=== PATIENT | male | born 1945 | race Caucasian/White ===

== ENCOUNTER 2016-12-08 08:06 | Outpatient (CLI) | payer MEDICARE ==
[~2016-12-08] VITALS: Ht 172.7 cm; Wt 95.3 kg
[~2016-12-08 08:06] MED LIST: ASPI1TAB PO; FISH1000 PO; GLUC1CAP10 PO; LISI10TA4 PO; MULT1TAB10 PO; VITA500T PO
[2016-12-08] MEDS ORDERED: NS 1,000 ML IV SCH (09:00)
[2016-12-08] MEDS ORDERED: LIDOCAINE 2% INJ 100 MG/5 ML SDV (FOR ANES.) As Ordered ONE (09:27)
[2016-12-08] MEDS ORDERED: PROPOFOL 200 MG/20 ML VIAL As Ordered ONE (09:27)
--- NOTE | 2016-12-08 09:36 | ROOR ---
Patient Name: Garth Flanagan Procedure Date: 12/08/2016 9:19 AM Date of : 1945 Age: 71 Room: [facility] Gender: Male Note Status: Finalized Procedure: Colonoscopy Indications: Screening in patient at increased risk: Colorectal cancer in father before age 60 Providers: Rodri DOLAN MD Referring MD: KAMILA AREVALO MD Requesting Provider: Medicines: Monitored Anesthesia Care Complications: No immediate complications. Procedure: Pre-Anesthesia Assessment: - The heart rate, respiratory rate, oxygen saturations, blood pressure, adequacy of pulmonary ventilation, and response to care were monitored throughout the procedure. The Colonoscope was introduced through the anus and advanced to the cecum, identified by appendiceal orifice and ileocecal valve. The colonoscopy was performed without difficulty. The patient tolerated the procedure well. The quality of the bowel preparation was good. Findings: The perianal and digital rectal examinations were normal. Internal hemorrhoids were found during retroflexion. The hemorrhoids were moderate. The entire examined colon appeared normal on direct and retroflexion views. Impression: - Internal hemorrhoids. - The entire colon is normal on direct and retroflexion views. - No specimens collected. Recommendation: - Repeat colonoscopy in 5 years for screening purposes. Rodri Dolan MD Rodri DOLAN MD 12/08/2016 9:36:19 AM This report has been signed electronically. Number of Addenda: 0 Note Initiated On: 12/08/2016 9:19 AM Estimated Blood Loss: Estimated blood loss: none.
[2016-12-08 09:50] VITALS: BP 109/67
== END 2016-12-08 10:13 | disposition home or self-care (01) ==
LOC: M OPP 08:06
PROVIDERS: ATTEND Internal Medicine Gastroenterology
DX: Z12.11 Encounter for screening for malignant neoplasm of colon (principal); Z80.0 Family history of malignant neoplasm of digestive organs; R19.4 Change in bowel habit; K64.8 Other hemorrhoids; I10 Essential (primary) hypertension; R01.1 Cardiac murmur, unspecified; M19.90 Unspecified osteoarthritis, unspecified site; R06.83 Snoring; Z88.0 Allergy status to penicillin; Z79.82 Long term (current) use of aspirin; Z79.899 Other long term (current) drug therapy; Z80.42 Family history of malignant neoplasm of prostate

== ENCOUNTER 2020-05-07 18:48 | Emergency (ER) | payer MEDICARE ==
[~2020-05-07] VITALS: Ht 172.7 cm; Wt 97.9 kg
[~2020-05-07 18:48] MED LIST changes: -ASPI1TAB PO; +ASPI81TA26 PO; +LISI10TA22 PO; -LISI10TA4 PO; +VITA-243 PO; -VITA500T PO
[2020-05-07] MEDS ORDERED: OMEP-218 PO (19:06)
[2020-05-07] MEDS ORDERED: vitamin d PO (19:06)
--- NOTE | 2020-05-07 20:18 | REPVR ---
PROCEDURE INFORMATION: Exam: US Duplex Right Upper Extremity Veins, Limited Exam date and time: 05/07/2020 7:42 PM Age: 74 years old Clinical indication: Edema, localized; Upper extremity, right; Prior surgery; Surgery date: <1 month; Surgery type: Patient had RT shoulder replacement on 04/24; Additional info: R/O dvt TECHNIQUE: Imaging protocol: Real-time Duplex ultrasound of the Right Upper Extremity with 2-D hinojosa scale, color Doppler flow and spectral waveform analysis with image documentation. Limited exam focused on the right upper extremity veins. COMPARISON: No relevant prior studies available. FINDINGS: Right deep veins: Unremarkable. Axillary and brachial veins are patent throughout without thrombus. Normal Doppler waveforms. Normal compressibility and/or augmentation response. Visualized internal jugular and subclavian veins are patent. Right superficial veins: Unremarkable. Visualized cephalic and basilic veins are patent without thrombus. Soft tissues: Soft tissue swelling along the basilic vein. IMPRESSION: No evidence of DVT right arm. Electronically signed by: Mirza Fortune On 05/07/2020 20:18:22 PM
[2020-05-07 20:29] LABS: BASO % 0.4 % (0.0-1.0); EOS # 0.4 10^3/uL (0.0-0.5); EOS % 4.1 % (0.0-3.0); HEMATOCRIT 41.7 % (42.0-52.0); HEMOGLOBIN 14.1 g/dl (13.5-17.5); LYMPH # 1.7 10^3/uL (1.5-5.0); LYMPH % 15.9 % (24.0-44.0); MEAN CORPUSCULAR HEMOGLOBIN 31.1 pg (27.0-33.0); MEAN CORPUSCULAR HGB CONC 33.8 g/dl (32.0-36.5); MEAN CORPUSCULAR VOLUME 92.1 fl (80.0-96.0); MONO # 0.6 10^3/uL (0.0-0.8); MONO % 5.7 % (2.0-8.0); NEUTROPHILS % 73.5 % (36.0-66.0); PLATELET COUNT, AUTOMATED 355 10^3/uL (150-450); RED BLOOD COUNT 4.53 10^6/uL (4.30-6.10); WHITE BLOOD COUNT 10.9 10^3/uL (4.0-10.0)
[2020-05-07 20:37] LABS: ALBUMIN 3.7 GM/DL (3.2-5.2); ALT/SGPT 34 U/L (12-78); BILIRUBIN,DIRECT < 0.1 MG/DL (0.0-0.2); BILIRUBIN,TOTAL 0.3 MG/DL (0.2-1.0); BLOOD UREA NITROGEN 26 MG/DL (7-18); CALCIUM LEVEL 9.3 MG/DL (8.8-10.2); CARBON DIOXIDE LEVEL 30 MEQ/L (21-32); CHLORIDE LEVEL 108 MEQ/L (98-107); CREATININE FOR GFR 0.97 MG/DL (0.70-1.30); GLOMERULAR FILTRATION RATE > 60.0 (>42); GLUCOSE, FASTING 108 MG/DL (70-100); POTASSIUM SERUM 4.2 MEQ/L (3.5-5.1); SODIUM LEVEL 141 MEQ/L (136-145); TOTAL PROTEIN 6.9 GM/DL (6.4-8.2)
[2020-05-07 20:52] LABS: C REACTIVE PROTEIN QUANTITATIV 1.34 MG/DL (0.00-0.30)
[2020-05-07 20:54] LABS: ERYTHROCYTE SEDIMENTATION RATE 46 mm/hr (0-20)
[2020-05-07] MEDS ORDERED: TRIA1CR80 TOP (21:03)
[2020-05-07 21:12] VITALS: BP 143/80
== END 2020-05-07 21:22 | disposition home or self-care (01) ==
LOC: M ED 18:48
DX: L25.9 Unspecified contact dermatitis, unspecified cause (principal); Z96.611 Presence of right artificial shoulder joint; I10 Essential (primary) hypertension; K21.9 Gastro-esophageal reflux disease without esophagitis; Z79.82 Long term (current) use of aspirin; Z79.899 Other long term (current) drug therapy; Z88.0 Allergy status to penicillin

== ENCOUNTER → 2020-08-17 | Outpatient (CLI) | payer MEDICARE ==
[~2020-08-17] MED LIST changes: +OMEP-218 PO; +TRIA1CR80 TOP; +vitamin d PO
--- NOTE | 2020-08-17 11:44 | REP ---
INDICATION: SHORTNESS OF BREATH. COMPARISON: 12/03/2008 latest prior TECHNIQUE: PA and lateral views FINDINGS: There has been an increase in the size of the right hilum. No other significant changes seen in the lung pérez. The pleural angles are sharp. The heart is not enlarged. The osseous structures are within normal limits for the patient's age. IMPRESSION: Increased in size right hilum. Contrast-enhanced chest CT is recommended. <Electronically signed by John Lee > 08/17/20 [id number]
== END ==
LOC: M WUC 10:00
PROVIDERS: ATTEND Internal Medicine
DX: R06.02 Shortness of breath (principal); R91.8 Other nonspecific abnormal finding of lung field

== ENCOUNTER → 2021-01-16 | Outpatient (CLI) | payer MEDICARE | LOC: M LABSMTC 09:44 | PROVIDERS: ATTEND Internal Medicine Cardiovascular Disease | DX: Z01.812 Encounter for preprocedural laboratory examination (principal); Z20.822 Contact with and (suspected) exposure to COVID-19 ==

== ENCOUNTER → 2021-12-27 | Outpatient (REF) | payer MEDICARE ==
[~2021-12-27] MED LIST changes: +OMEP-173 PO; -OMEP-218 PO
[2021-12-27 13:35] LABS: APPEARANCE, URINE MANUAL CLEAR (CLEAR); COLOR, URINE MANUAL YELLOW (YELLOW)
[2021-12-27 13:36] LABS: BILIRUBIN, URINE MANUAL NEGATIVE (NEGATIVE); BLOOD URINE MANUAL NEGATIVE (NEGATIVE); GLUCOSE, URINE (UA) MANUAL NEGATIVE (NEGATIVE); KETONE, URINE MANUAL NEGATIVE (NEGATIVE); LEUKOCYTE ESTERASE, URINE MAN NEGATIVE (NEGATIVE); NITRITE, URINE MANUAL NEGATIVE (NEGATIVE); PROTEIN, URINE MANUAL NEGATIVE (NEGATIVE); SPECIFIC GRAVITY,URINE MANUAL 1.025 (1.002-1.035); UROBILINOGEN, URINE MANUAL NORMAL (NORMAL)
== END ==
LOC: M SMT 12:51
PROVIDERS: ATTEND Physician Assistant
DX: R39.9 Unspecified symptoms and signs involving the genitourinary system (principal)

== ENCOUNTER → 2021-12-30 | Outpatient (CLI) | payer MEDICARE ==
[2021-12-30 11:04] LABS: HEMOGLOBIN A1c 5.8 %
== END ==
LOC: M CARPUL 09:42
PROVIDERS: ATTEND Internal Medicine Pulmonary Disease
DX: R06.02 Shortness of breath (principal)

== ENCOUNTER → 2022-01-04 | Outpatient (CLI) | payer MEDICARE ==
[~2022-01-04] MED LIST changes: +METHACHOLINE KIT (J7674) INH ONE
== END ==
LOC: M CARPUL 08:39
PROVIDERS: ATTEND Internal Medicine Pulmonary Disease
DX: R06.02 Shortness of breath (principal); Z95.2 Presence of prosthetic heart valve; J84.10 Pulmonary fibrosis, unspecified
CPT/HCPCS: 71250; 94070; 95070; J7674

== ENCOUNTER → 2022-02-04 | Outpatient (CLI) | payer MEDICARE ==
[~2022-02-04] MED LIST changes: +ATOR40TA75 PO; +BREO1INH; +CEPH500C; +EPIN0.3I11; -METHACHOLINE KIT (J7674) INH ONE; +MULT1TAB83 PO; +OXYB10TA23; +VITA100093 PO
[2022-02-04 09:06] LABS: HEMATOCRIT 40.4 % (42.0-52.0); HEMOGLOBIN 13.5 g/dl (13.5-17.5); MEAN CORPUSCULAR HEMOGLOBIN 32.1 pg (27.0-33.0); MEAN CORPUSCULAR HGB CONC 33.4 g/dl (32.0-36.5); MEAN CORPUSCULAR VOLUME 96.2 fl (80.0-96.0); PLATELET COUNT, AUTOMATED 180 10^3/uL (150-450); WHITE BLOOD COUNT 7.2 10^3/uL (4.0-10.0)
[2022-02-04 09:17] LABS: INR 0.88; PROTHROMBIN TIME 12.1 SECONDS (12.5-14.5)
[2022-02-04 09:26] LABS: ERYTHROCYTE SEDIMENTATION RATE 17 mm/hr (0-20)
[2022-02-04 09:44] LABS: ALBUMIN 3.8 G/DL (3.2-5.2); ALT/SGPT 30 U/L (7.0-40); BILIRUBIN,TOTAL 0.6 MG/DL (0.3-1.2); BLOOD UREA NITROGEN 20 MG/DL (9-23); CALCIUM LEVEL 9.1 MG/DL (8.3-10.6); CARBON DIOXIDE LEVEL 27 MMOL/L (20-31); CHLORIDE LEVEL 109 MMOL/L (98-107); CREATININE FOR GFR 0.75 MG/DL (0.70-1.30); GLOMERULAR FILTRATION RATE > 60.0 (>42); GLUCOSE, FASTING 116 MG/DL (74-106); POTASSIUM SERUM 4.5 MMOL/L (3.5-5.1); SODIUM LEVEL 144 MMOL/L (136-145); TOTAL PROTEIN 6.4 G/DL (5.7-8.2)
== END ==
LOC: M LAB 08:16
PROVIDERS: ATTEND Orthopaedic Surgery
DX: M17.12 Unilateral primary osteoarthritis, left knee (principal)

== ENCOUNTER → 2022-02-15 | Outpatient (CLI) | payer MEDICARE | LOC: M LABSMTC 09:49 | PROVIDERS: ATTEND Anesthesiology | DX: Z01.812 Encounter for preprocedural laboratory examination (principal); Z20.822 Contact with and (suspected) exposure to COVID-19 ==

== ENCOUNTER 2022-02-18 08:49 | Day surgery (SDC) | payer MEDICARE ==
[~2022-02-18] VITALS: Ht 172.7 cm; Wt 88.9 kg
[~2022-02-18 08:49] MED LIST changes: +NS 1,000 ML IV ONE
[2022-02-18] MEDS ORDERED: propofoL 200 MG/20 ML VIAL As Ordered ONE (10:11)
[2022-02-18 11:22] VITALS: BP 130/72
== END 2022-02-18 11:27 | disposition home or self-care (01) ==
LOC: M OPP 08:49
PROVIDERS: ATTEND Internal Medicine Gastroenterology
DX: Z12.11 Encounter for screening for malignant neoplasm of colon (principal); Z80.0 Family history of malignant neoplasm of digestive organs; K64.8 Other hemorrhoids; I10 Essential (primary) hypertension; E78.00 Pure hypercholesterolemia, unspecified; J45.909 Unspecified asthma, uncomplicated; M19.90 Unspecified osteoarthritis, unspecified site; Z79.02 Long term (current) use of antithrombotics/antiplatelets; Z79.51 Long term (current) use of inhaled steroids; Z79.82 Long term (current) use of aspirin; Z79.899 Other long term (current) drug therapy; Z88.0 Allergy status to penicillin; Z91.030 Bee allergy status; Z95.4 Presence of other heart-valve replacement; Z80.42 Family history of malignant neoplasm of prostate

== ENCOUNTER 2022-04-02 08:14 | Emergency (ER) | payer MEDICARE ==
[~2022-04-02] VITALS: Ht 172.7 cm; Wt 87.8 kg
[~2022-04-02 08:14] MED LIST changes: -NS 1,000 ML IV ONE
[2022-04-02] MEDS ORDERED: VITA-243 PO (08:57)
[2022-04-02] MEDS ORDERED: GALZ50CA PO (08:57)
[2022-04-02] MEDS ORDERED: ACETAMINOPHEN 500 MG TAB PO ONE (09:05)
[2022-04-02] MEDS ORDERED: PERCOCET 5MG/325MG TAB PO PRN (09:05)
[2022-04-02 10:00] LABS: BASO % 0.2 % (0.0-1.0); EOS % 0.5 % (0.0-3.0); HEMATOCRIT 31.8 % (42.0-52.0); HEMOGLOBIN 10.6 g/dl (13.5-17.5); LYMPH # 1.1 10^3/uL (1.5-5.0); LYMPH % 13.2 % (24.0-44.0); MEAN CORPUSCULAR HEMOGLOBIN 30.9 pg (27.0-33.0); MEAN CORPUSCULAR HGB CONC 33.3 g/dl (32.0-36.5); MEAN CORPUSCULAR VOLUME 92.7 fl (80.0-96.0); MONO # 0.9 10^3/uL (0.0-0.8); MONO % 10.9 % (2.0-8.0); NEUTROPHILS # 6.2 10^3/uL (1.5-8.5); NEUTROPHILS % 74.6 % (36.0-66.0); PLATELET COUNT, AUTOMATED 285 10^3/uL (150-450); RED BLOOD COUNT 3.43 10^6/uL (4.30-6.10); WHITE BLOOD COUNT 8.3 10^3/uL (4.0-10.0)
[2022-04-02] MEDS ORDERED: ISOVUE-370 76% 100ML VIAL As Ordered ONE (10:01)
[2022-04-02 10:23] LABS: ALBUMIN 2.7 G/DL (3.2-5.2); ALKALINE PHOSPHATASE 136 U/L (46-116); ALT/SGPT 67 U/L (7.0-40); AST/SGOT 44 U/L (<34); BILIRUBIN,DIRECT 0.3 MG/DL (<0.4); BILIRUBIN,TOTAL 0.8 MG/DL (0.3-1.2); CPK CREATINE PHOSPHOKINASE 30 U/L (46-171); TOTAL PROTEIN 6.1 G/DL (5.7-8.2)
[2022-04-02 10:24] LABS: CK-MB VALUE MASS < 1.0 NG/ML (<3.6); MB/CK RELATIVE INDEX 3.33 (< OR =4)
[2022-04-02] MEDS ORDERED: GABA-282 PO (12:12)
[2022-04-02] MEDS ORDERED: TRAM-533 PO (12:18)
[2022-04-02 12:25] VITALS: BP 132/76
== END 2022-04-02 12:48 | disposition home or self-care (01) ==
LOC: M ED 08:14
DX: G50.1 Atypical facial pain (principal); R74.01 Elevation of levels of liver transaminase levels; M54.2 Cervicalgia; R07.89 Other chest pain; I65.22 Occlusion and stenosis of left carotid artery; D64.9 Anemia, unspecified; I25.2 Old myocardial infarction; J45.909 Unspecified asthma, uncomplicated; I10 Essential (primary) hypertension; K21.9 Gastro-esophageal reflux disease without esophagitis; Z88.0 Allergy status to penicillin; Z91.030 Bee allergy status; Z79.82 Long term (current) use of aspirin; Z79.811 Long term (current) use of aromatase inhibitors; Z79.899 Other long term (current) drug therapy
CPT/HCPCS: 36415; 70450; 70496; 70498; 71046; 80047; 80076; 82550; 82553; 84484; 85025; 93005; 99284; Q9967

== ENCOUNTER → 2022-07-26 | Outpatient (CLI) | payer MEDICARE ==
[~2022-07-26] MED LIST changes: +ALBU8.5H; +GABA-282 PO; +GALZ50CA PO; +LIDOCAINE 1% MDV 20ML VIAL As Ordered ONE; +PRED20TA; +TRAM-533 PO
[2022-07-26 08:59] LABS: BASO % 0.2 % (0.0-1.0); EOS % 0.2 % (0.0-3.0); HEMATOCRIT 32.7 % (42.0-52.0); HEMOGLOBIN 10.5 g/dl (13.5-17.5); LYMPH # 0.5 10^3/uL (1.5-5.0); LYMPH % 4.8 % (24.0-44.0); MEAN CORPUSCULAR HEMOGLOBIN 27.8 pg (27.0-33.0); MEAN CORPUSCULAR HGB CONC 32.1 g/dl (32.0-36.5); MEAN CORPUSCULAR VOLUME 86.5 fl (80.0-96.0); MONO # 0.3 10^3/uL (0.0-0.8); MONO % 2.9 % (2.0-8.0); NEUTROPHILS # 9.9 10^3/uL (1.5-8.5); PLATELET COUNT, AUTOMATED 192 10^3/uL (150-450); RED BLOOD COUNT 3.78 10^6/uL (4.30-6.10); WHITE BLOOD COUNT 10.9 10^3/uL (4.0-10.0)
[2022-07-26 09:20] VITALS: BP 110/71
[2022-07-26 09:30] LABS: IRON (FE) 39 UG/DL (65-175); PERCENT SATURATION 15.9 % (19.7-50.0); TOTAL IRON BINDING CAPACITY 246 UG/DL (250-425)
[2022-07-26 09:31] LABS: ALBUMIN 2.7 G/DL (3.2-5.2); ALKALINE PHOSPHATASE 114 U/L (46-116); ALT/SGPT 28 U/L (7.0-40); AST/SGOT 18 U/L (<34); BILIRUBIN,TOTAL 0.6 MG/DL (0.3-1.2); BLOOD UREA NITROGEN 22 MG/DL (9-23); CALCIUM LEVEL 8.8 MG/DL (8.3-10.6); CARBON DIOXIDE LEVEL 27 MMOL/L (20-31); CHLORIDE LEVEL 103 MMOL/L (98-107); CREATININE FOR GFR 0.87 MG/DL (0.70-1.30); FERRITIN 436.8 NG/ML (10.5-307.3); GLOMERULAR FILTRATION RATE > 60.0 (>42); GLUCOSE, FASTING 113 MG/DL (74-106); POTASSIUM SERUM 4.1 MMOL/L (3.5-5.1); SODIUM LEVEL 138 MMOL/L (136-145); TOTAL PROTEIN 5.5 G/DL (5.7-8.2)
[2022-07-26 09:32] LABS: FOLATE 14.2 NG/ML (>5.4); VITAMIN B12 LEVEL 197 PG/ML (211-911)
[2022-07-26 10:08] LABS: INR 0.97; PROTHROMBIN TIME 13.1 SECONDS (12.5-14.5)
[2022-07-26 10:09] LABS: PARTIAL THROMBOPLASTIN TIME 26.9 SECONDS (24.8-34.2)
== END ==
LOC: M IRPRO 07:50
PROVIDERS: ATTEND Specialist
DX: D64.9 Anemia, unspecified (principal)

== ENCOUNTER → 2022-08-05 | Outpatient (CLI) | payer MEDICARE ==
[~2022-08-05] MED LIST changes: -LIDOCAINE 1% MDV 20ML VIAL As Ordered ONE; +TOLT2CAP4
== END ==
LOC: M WUC 10:08
PROVIDERS: ATTEND Internal Medicine
DX: R06.00 Dyspnea, unspecified (principal); J84.10 Pulmonary fibrosis, unspecified; Z96.611 Presence of right artificial shoulder joint; Z95.2 Presence of prosthetic heart valve

== ENCOUNTER 2022-08-19 14:16 | Emergency (ER) | payer MEDICARE ==
[~2022-08-19] VITALS: Ht 172.7 cm; Wt 85.9 kg
[2022-08-19 14:18] VITALS: BP 104/58; TEMP 96.3; O2SAT 99
[2022-08-19] MEDS ORDERED: ISOVUE-370 76% 100ML VIAL As Ordered ONE (16:03)
[2022-08-19] MEDS ORDERED: IRON65TA2 PO (17:23)
== END 2022-08-19 20:47 | disposition home or self-care (01) ==
LOC: M ED 14:16
DX: D50.9 Iron deficiency anemia, unspecified (principal); R93.3 Abnormal findings on diagnostic imaging of other parts of digestive tract; I25.10 Atherosclerotic heart disease of native coronary artery without angina pectoris; E78.5 Hyperlipidemia, unspecified; J45.909 Unspecified asthma, uncomplicated; Z79.82 Long term (current) use of aspirin; Z79.899 Other long term (current) drug therapy; Z88.0 Allergy status to penicillin; Z91.030 Bee allergy status

== ENCOUNTER → 2022-10-11 | Outpatient (REF) | payer MEDICARE ==
[~2022-10-11] MED LIST changes: +IRON65TA2 PO
[2022-10-11 17:13] LABS: BASO # 0.1 10^3/uL (0.0-0.2); BASO % 0.8 % (0.0-1.0); EOS # 0.5 10^3/uL (0.0-0.5); EOS % 6.7 % (0.0-3.0); HEMATOCRIT 31.4 % (42.0-52.0); LYMPH # 1.3 10^3/uL (1.5-5.0); LYMPH % 16.7 % (24.0-44.0); MEAN CORPUSCULAR HEMOGLOBIN 29.2 pg (27.0-33.0); MEAN CORPUSCULAR HGB CONC 31.8 g/dl (32.0-36.5); MEAN CORPUSCULAR VOLUME 91.8 fl (80.0-96.0); MONO # 0.6 10^3/uL (0.0-0.8); MONO % 7.5 % (2.0-8.0); NEUTROPHILS # 5.4 10^3/uL (1.5-8.5); NEUTROPHILS % 67.9 % (36.0-66.0); PLATELET COUNT, AUTOMATED 300 10^3/uL (150-450); RED BLOOD COUNT 3.42 10^6/uL (4.30-6.10); WHITE BLOOD COUNT 7.9 10^3/uL (4.0-10.0)
[2022-10-11 17:36] LABS: ALBUMIN 3.5 G/DL (3.2-5.2); ALKALINE PHOSPHATASE 157 U/L (46-116); ALT/SGPT 19 U/L (7.0-40); AST/SGOT 11 U/L (<34); BILIRUBIN,DIRECT 0.2 MG/DL (<0.4); BILIRUBIN,TOTAL 0.4 MG/DL (0.3-1.2); BLOOD UREA NITROGEN 25 MG/DL (9-23); CALCIUM LEVEL 9.3 MG/DL (8.3-10.6); CARBON DIOXIDE LEVEL 25 MMOL/L (20-31); CHLORIDE LEVEL 104 MMOL/L (98-107); CREATININE FOR GFR 0.66 MG/DL (0.70-1.30); GLOMERULAR FILTRATION RATE > 60.0 (>42); GLUCOSE, FASTING 72 MG/DL (74-106); POTASSIUM SERUM 4.4 MMOL/L (3.5-5.1); SODIUM LEVEL 139 MMOL/L (136-145); TOTAL PROTEIN 6.3 G/DL (5.7-8.2)
[2022-10-11 18:14] LABS: ERYTHROCYTE SEDIMENTATION RATE 32 mm/hr (0-20)
== END ==
LOC: M LABDRWAD 15:53 → M LAB REF 15:53
PROVIDERS: ATTEND Thoracic Surgery (Cardiothoracic Vascular Surgery)
DX: A48.8 Other specified bacterial diseases (principal)

== ENCOUNTER → 2022-10-11 | Outpatient (CLI) | payer MEDICARE | LOC: M IRPRO 09:24 | PROVIDERS: ATTEND Thoracic Surgery (Cardiothoracic Vascular Surgery) | DX: J90 Pleural effusion, not elsewhere classified (principal); Z91.030 Bee allergy status; Z88.0 Allergy status to penicillin ==

== ENCOUNTER → 2022-10-18 | Outpatient (REF) | payer MEDICARE ==
[2022-10-18 14:11] LABS: BASO # 0.1 10^3/uL (0.0-0.2); BASO % 1.1 % (0.0-1.0); EOS # 0.5 10^3/uL (0.0-0.5); EOS % 7.1 % (0.0-3.0); HEMATOCRIT 33.3 % (42.0-52.0); HEMOGLOBIN 10.9 g/dl (13.5-17.5); LYMPH # 1.2 10^3/uL (1.5-5.0); LYMPH % 17.1 % (24.0-44.0); MEAN CORPUSCULAR HEMOGLOBIN 29.8 pg (27.0-33.0); MEAN CORPUSCULAR HGB CONC 32.7 g/dl (32.0-36.5); MONO # 0.6 10^3/uL (0.0-0.8); MONO % 8.3 % (2.0-8.0); NEUTROPHILS # 4.6 10^3/uL (1.5-8.5); PLATELET COUNT, AUTOMATED 247 10^3/uL (150-450); RED BLOOD COUNT 3.66 10^6/uL (4.30-6.10)
[2022-10-18 14:25] LABS: ALBUMIN 3.5 G/DL (3.2-5.2); ALKALINE PHOSPHATASE 155 U/L (46-116); ALT/SGPT 22 U/L (7.0-40); AST/SGOT 12 U/L (<34); BILIRUBIN,DIRECT 0.2 MG/DL (<0.4); BILIRUBIN,TOTAL 0.4 MG/DL (0.3-1.2); BLOOD UREA NITROGEN 36 MG/DL (9-23); CALCIUM LEVEL 9.4 MG/DL (8.3-10.6); CARBON DIOXIDE LEVEL 28 MMOL/L (20-31); CHLORIDE LEVEL 102 MMOL/L (98-107); CREATININE FOR GFR 0.75 MG/DL (0.70-1.30); GLOMERULAR FILTRATION RATE > 60.0 (>42); GLUCOSE, FASTING 87 MG/DL (74-106); POTASSIUM SERUM 4.2 MMOL/L (3.5-5.1); SODIUM LEVEL 140 MMOL/L (136-145); TOTAL PROTEIN 6.4 G/DL (5.7-8.2)
[2022-10-18 14:37] LABS: ERYTHROCYTE SEDIMENTATION RATE 31 mm/hr (0-20)
== END ==
LOC: M LABDRWAD 12:44
PROVIDERS: ATTEND Thoracic Surgery (Cardiothoracic Vascular Surgery)
DX: A48.8 Other specified bacterial diseases (principal)

== ENCOUNTER → 2022-10-24 | Outpatient (CLI) | payer MEDICARE ==
[~2022-10-24] MED LIST changes: +ACET-683 PO; +ELIQ5TAB PO; +MELA3TAB49 PO
== END ==
LOC: M IRPRO 12:36
PROVIDERS: ATTEND Thoracic Surgery (Cardiothoracic Vascular Surgery)
DX: J90 Pleural effusion, not elsewhere classified (principal)

== ENCOUNTER → 2022-10-24 | Outpatient (REF) | payer MEDICARE ==
[2022-10-24 13:08] LABS: BASO # 0.1 10^3/uL (0.0-0.2); BASO % 0.7 % (0.0-1.0); EOS # 0.4 10^3/uL (0.0-0.5); EOS % 5.9 % (0.0-3.0); HEMATOCRIT 31.7 % (42.0-52.0); HEMOGLOBIN 10.4 g/dl (13.5-17.5); LYMPH % 14.3 % (24.0-44.0); MEAN CORPUSCULAR HEMOGLOBIN 29.6 pg (27.0-33.0); MEAN CORPUSCULAR HGB CONC 32.8 g/dl (32.0-36.5); MEAN CORPUSCULAR VOLUME 90.3 fl (80.0-96.0); MONO # 0.5 10^3/uL (0.0-0.8); MONO % 7.7 % (2.0-8.0); NEUTROPHILS # 4.8 10^3/uL (1.5-8.5); NEUTROPHILS % 71.1 % (36.0-66.0); PLATELET COUNT, AUTOMATED 215 10^3/uL (150-450); RED BLOOD COUNT 3.51 10^6/uL (4.30-6.10); WHITE BLOOD COUNT 6.8 10^3/uL (4.0-10.0)
[2022-10-24 13:32] LABS: ALBUMIN 3.3 G/DL (3.2-5.2); ALKALINE PHOSPHATASE 142 U/L (46-116); ALT/SGPT 31 U/L (7.0-40); AST/SGOT 19 U/L (<34); BILIRUBIN,DIRECT 0.1 MG/DL (<0.4); BILIRUBIN,TOTAL 0.3 MG/DL (0.3-1.2); BLOOD UREA NITROGEN 33 MG/DL (9-23); CALCIUM LEVEL 9.6 MG/DL (8.3-10.6); CARBON DIOXIDE LEVEL 27 MMOL/L (20-31); CHLORIDE LEVEL 105 MMOL/L (98-107); CREATININE FOR GFR 0.79 MG/DL (0.70-1.30); GLOMERULAR FILTRATION RATE > 60.0 (>42); GLUCOSE, FASTING 112 MG/DL (74-106); POTASSIUM SERUM 4.4 MMOL/L (3.5-5.1); SODIUM LEVEL 142 MMOL/L (136-145); TOTAL PROTEIN 5.9 G/DL (5.7-8.2)
[2022-10-24 13:42] LABS: ERYTHROCYTE SEDIMENTATION RATE 24 mm/hr (0-20)
== END ==
LOC: M LAB REF 12:21
PROVIDERS: ATTEND Thoracic Surgery (Cardiothoracic Vascular Surgery)
DX: A48.8 Other specified bacterial diseases (principal)

== ENCOUNTER → 2022-11-11 | Outpatient (REF) | payer MEDICARE ==
[2022-11-11 18:45] LABS: HEMATOCRIT 37.8 % (42.0-52.0); MEAN CORPUSCULAR HEMOGLOBIN 29.6 pg (27.0-33.0); MEAN CORPUSCULAR HGB CONC 31.7 g/dl (32.0-36.5); MEAN CORPUSCULAR VOLUME 93.3 fl (80.0-96.0); PLATELET COUNT, AUTOMATED 246 10^3/uL (150-450); RED BLOOD COUNT 4.05 10^6/uL (4.30-6.10); WHITE BLOOD COUNT 8.3 10^3/uL (4.0-10.0)
[2022-11-11 19:01] LABS: BLOOD UREA NITROGEN 26 MG/DL (9-23); CALCIUM LEVEL 9.7 MG/DL (8.3-10.6); CARBON DIOXIDE LEVEL 28 MMOL/L (20-31); CHLORIDE LEVEL 107 MMOL/L (98-107); CREATININE FOR GFR 0.97 MG/DL (0.70-1.30); GLOMERULAR FILTRATION RATE > 60.0 (>42); GLUCOSE, FASTING 92 MG/DL (74-106); POTASSIUM SERUM 4.8 MMOL/L (3.5-5.1); SODIUM LEVEL 144 MMOL/L (136-145)
== END ==
LOC: M WUC 16:08
PROVIDERS: ATTEND Internal Medicine
DX: I38 Endocarditis, valve unspecified (principal)

== ENCOUNTER → 2022-12-02 | Outpatient (REF) | payer MEDICARE ==
[2022-12-02 17:04] LABS: C REACTIVE PROTEIN QUANTITATIV 3.3 MG/DL (<1.0)
[2022-12-02 17:05] LABS: PERCENT SATURATION 18.8 % (19.7-50.0)
[2022-12-02 17:07] LABS: FERRITIN 312.4 NG/ML (10.5-307.3)
== END ==
LOC: M LAB REF 16:26
PROVIDERS: ATTEND Internal Medicine
DX: D64.9 Anemia, unspecified (principal); D47.2 Monoclonal gammopathy; I38 Endocarditis, valve unspecified

== ENCOUNTER → 2023-07-18 | Outpatient (CLI) | payer MEDICARE ==
[2023-07-18 14:50] LABS: BASO % 0.5 % (0.0-1.0); EOS # 0.3 10^3/uL (0.0-0.5); EOS % 3.7 % (0.0-3.0); HEMATOCRIT 39.2 % (42.0-52.0); HEMOGLOBIN 13.3 g/dl (13.5-17.5); LYMPH # 1.6 10^3/uL (1.5-5.0); LYMPH % 18.1 % (24.0-44.0); MEAN CORPUSCULAR HGB CONC 33.9 g/dl (32.0-36.5); MEAN CORPUSCULAR VOLUME 94.5 fl (80.0-96.0); MONO # 0.7 10^3/uL (0.0-0.8); MONO % 7.6 % (2.0-8.0); NEUTROPHILS # 6.1 10^3/uL (1.5-8.5); NEUTROPHILS % 69.9 % (36.0-66.0); PLATELET COUNT, AUTOMATED 199 10^3/uL (150-450); RED BLOOD COUNT 4.15 10^6/uL (4.30-6.10); WHITE BLOOD COUNT 8.7 10^3/uL (4.0-10.0)
[2023-07-18 15:01] LABS: ALBUMIN 3.8 G/DL (3.2-5.2)
[2023-07-18 15:08] LABS: PERCENT SATURATION 25.8 % (19.7-50.0)
== END ==
LOC: M PLALAB 10:58
PROVIDERS: ATTEND Orthopaedic Surgery Adult Reconstructive Orthopaedic Surgery
DX: Z01.818 Encounter for other preprocedural examination (principal); M17.11 Unilateral primary osteoarthritis, right knee; M25.561 Pain in right knee

== ENCOUNTER → 2023-08-15 | Outpatient (REF) | payer MEDICARE ==
[2023-08-15 14:13] LABS: PERCENT SATURATION 34.1 % (19.7-50.0)
[2023-08-15 14:16] LABS: FERRITIN 188.2 NG/ML (10.5-307.3)
== END ==
LOC: M LAB REF 13:34
PROVIDERS: ATTEND Internal Medicine
DX: D50.9 Iron deficiency anemia, unspecified (principal)

== ENCOUNTER → 2023-08-29 | Outpatient (CLI) | payer MEDICARE | LOC: M RAD 09:46 | PROVIDERS: ATTEND Physician Assistant | DX: I65.23 Occlusion and stenosis of bilateral carotid arteries (principal) ==

== ENCOUNTER → 2024-03-04 | Outpatient (REF) | payer MEDICARE ==
[~2024-03-04] MED LIST changes: +GABA-1172 PO; -GABA-282 PO
[2024-03-04 14:07] LABS: FERRITIN 197.4 NG/ML (10.5-307.3); PERCENT SATURATION 32.5 % (19.7-50.0)
== END ==
LOC: M LAB REF 12:15
PROVIDERS: ATTEND Internal Medicine
DX: D50.9 Iron deficiency anemia, unspecified (principal)

== ENCOUNTER → 2024-11-01 | Outpatient (REF) | payer MEDICARE ==
[~2024-11-01] MED LIST changes: -GALZ50CA PO; +METO1TAB87; +PRES10CA2 PO; +SPIR-10; +ZINC50CA4 PO
[2024-11-01 15:01] LABS: IRON (FE) 88.0 UG/DL (65-175); PERCENT SATURATION 28.9 % (19.7-50.0)
[2024-11-03 04:57] LABS: PROTEIN, TOTAL SO 6.3 g/dL (6.1-8.1)
[2024-11-04 14:59] LABS: FREE KAPPA LIGHT CHAINS SERUM 13.0 mg/L (3.3-19.4); FREE LAMBDA LIGHT CHAINS SERUM 46.9 mg/L (5.7-26.3); KAPPA/LAMBDA RATIO SERUM 0.28 (0.26-1.65)
== END ==
LOC: M LAB REF 14:09
PROVIDERS: ATTEND Internal Medicine
DX: D50.9 Iron deficiency anemia, unspecified (principal); N18.31 Chronic kidney disease, stage 3a